=== PATIENT | female | born 1985 | race Caucasian/White ===

== ENCOUNTER 2018-11-23 08:27 | Emergency (ER) | payer MEDICAID ==
[2018-11-23] MEDS ORDERED: IBUPROFEN 200 MG TAB (09:08)
== END 2018-11-23 09:30 | disposition home or self-care (01) ==
LOC: E/R 08:27
DX: S00.83XA Contusion of other part of head, initial encounter (principal); V03.10XA Pedestrian on foot injured in collision with car, pick-up truck or van in traffic accident, initial encounter
CPT/HCPCS: 99282; Z7502